=== PATIENT | female | born 1935 | race Caucasian/White ===

== ENCOUNTER 2020-09-27 17:19 | Emergency (ER) | payer MEDICARE ==
[~2020-09-27] VITALS: Ht 167.6 cm; Wt 65.8 kg
== END 2020-09-27 22:20 | disposition home or self-care (01) ==
LOC: ER 17:40
DX: S32.592A Other specified fracture of left pubis, initial encounter for closed fracture (principal); S00.83XA Contusion of other part of head, initial encounter; S30.0XXA Contusion of lower back and pelvis, initial encounter; W10.8XXA Fall (on) (from) other stairs and steps, initial encounter; Y93.01 Activity, walking, marching and hiking; Y99.0 Civilian activity done for income or pay; F32.9 Major depressive disorder, single episode, unspecified; Z85.038 Personal history of other malignant neoplasm of large intestine
CPT/HCPCS: 70450; 72125; 72192; 99283

== ENCOUNTER 2020-11-13 17:38 | Emergency (ER) | payer MEDICARE ==
[~2020-11-13] VITALS: Ht 167.6 cm; Wt 65.8 kg
[2020-11-13] MEDS ORDERED: ONDANSETRON HCL INJ 2MG/ML 2ML 2 MG/ML VIAL IV NR (17:56)
[2020-11-13 18:36] LABS: ALBUMIN 3.4 g/dL (3.5-5.0); ANION GAP 13.2 mmol/L (8-16); CALCIUM 8.5 mg/dL (8.4-10.2); CREATININE, SERUM 0.95 mg/dL (0.57-1.11); POTASSIUM 4.2 mmol/L (3.5-5.1)
[2020-11-13 18:37] LABS: BASOPHILS % 0.4 % (0.0-1.0); EOSINOPHILS # (AUTO) 0.1 (0.0-0.4); EOSINOPHILS % 1.5 % (0.0-6.0); HEMATOCRIT 39.4 % (34.2-44.1); HEMOGLOBIN 12.7 g/dL (12.0-16.0); LYMPHOCYTES # (AUTO) 1.1 (1.0-3.2); LYMPHOCYTES % 15.7 % (18.0-39.1); MEAN CORPUSCULAR HEMOGLOBIN 30.2 pg (28-32); MEAN CORPUSCULAR HGB CONC 32.2 g/dL (31-35); MEAN CORPUSCULAR VOLUME 93.8 fL (81-99); MONOCYTES # (AUTO) 0.6 (0.2-0.8); MONOCYTES % 7.9 % (4.4-11.3); NEUTROPHILS # (AUTO) 5.4 (2.1-6.9); NEUTROPHILS % 74.2 % (38.7-80.0); PLATELET COUNT 130 x10e3/uL (140-360); RED CELL DISTRIBUTION WIDTH 13.2 % (11.7-14.4)
[2020-11-13 18:38] LABS: AMYLASE 45 U/L (25-125); LIPASE 8 U/L (8-78)
[2020-11-13 18:42] LABS: CREATINE KINASE MB 1.3 ng/mL (0-5.0)
[2020-11-13] MEDS ORDERED: IOPAMIDOL 370 MG/ML 200 ML INFUS..BTL INJ ONE (19:06)
== END 2020-11-13 23:31 | disposition home or self-care (01) ==
LOC: ER 18:00
DX: R10.13 Epigastric pain (principal); R11.2 Nausea with vomiting, unspecified; K57.30 Diverticulosis of large intestine without perforation or abscess without bleeding; N28.1 Cyst of kidney, acquired; F32.9 Major depressive disorder, single episode, unspecified; Z85.038 Personal history of other malignant neoplasm of large intestine
CPT/HCPCS: 36415; 74177; 80053; 82150; 82550; 82553; 83690; 84484; 85025; 93005; 99284; Q9967

== ENCOUNTER 2021-10-07 12:39 | Emergency (ER) | payer MEDICARE, OTHER ==
[~2021-10-07] VITALS: Ht 170.2 cm; Wt 66.2 kg
== END 2021-10-07 15:07 | disposition home or self-care (01) ==
LOC: ER 12:56
DX: S92.355A Nondisplaced fracture of fifth metatarsal bone, left foot, initial encounter for closed fracture (principal); X50.1XXA Overexertion from prolonged static or awkward postures, initial encounter; Y93.01 Activity, walking, marching and hiking; Y92.89 Other specified places as the place of occurrence of the external cause; I10 Essential (primary) hypertension; F41.9 Anxiety disorder, unspecified; Z85.038 Personal history of other malignant neoplasm of large intestine
CPT/HCPCS: 99282

== ENCOUNTER 2021-12-11 13:08 | Outpatient (RCR) | payer MEDICARE | END 2021-12-13 | LOC: PT 13:08 | PROVIDERS: ATTEND Specialist | DX: S93.492D Sprain of other ligament of left ankle, subsequent encounter (principal); S93.412D Sprain of calcaneofibular ligament of left ankle, subsequent encounter; S93.602D Unspecified sprain of left foot, subsequent encounter; S92.352D Displaced fracture of fifth metatarsal bone, left foot, subsequent encounter for fracture with routine healing ==

== ENCOUNTER 2021-12-30 08:57 | Outpatient (RCR) | payer MEDICARE | END 2022-01-13 | LOC: PT 08:57 | PROVIDERS: ATTEND Specialist | DX: S93.492D Sprain of other ligament of left ankle, subsequent encounter (principal); S93.412D Sprain of calcaneofibular ligament of left ankle, subsequent encounter; S93.602D Unspecified sprain of left foot, subsequent encounter; S92.352D Displaced fracture of fifth metatarsal bone, left foot, subsequent encounter for fracture with routine healing ==

== ENCOUNTER 2024-04-07 12:53 | Inpatient (IN) | payer MEDICARE ==
[2024-04-07] VITALS (10 sets, daily range): BP systolic 142–163; BP diastolic 66–108; PULSE 75–87; RESP 7–20; TEMP 98.4–99.5; O2SAT 95–100
[~2024-04-07] VITALS: Ht 170.2 cm; Wt 61.2 kg
[2024-04-07 14:53] LABS: BASOPHILS % 0.3 % (0.0-1.0); EOSINOPHILS % 0.6 % (0.0-6.0); HEMATOCRIT 46.5 % (34.2-44.1); HEMOGLOBIN 15.5 g/dL (12.0-16.0); LYMPHOCYTES # (AUTO) 1.5 (1.0-3.2); LYMPHOCYTES % 22.8 % (18.0-39.1); MEAN CORPUSCULAR HEMOGLOBIN 30.8 pg (28-32); MEAN CORPUSCULAR HGB CONC 33.3 g/dL (31-35); MEAN CORPUSCULAR VOLUME 92.4 fL (81-99); MONOCYTES # (AUTO) 0.4 (0.2-0.8); MONOCYTES % 6.6 % (4.4-11.3); NEUTROPHILS # (AUTO) 4.6 (2.1-6.9); NEUTROPHILS % 69.3 % (38.7-80.0); PLATELET COUNT 104 x10e3/uL (140-360); RED BLOOD COUNT 5.03 x10e6/uL (3.6-5.1); RED CELL DISTRIBUTION WIDTH 12.2 % (11.7-14.4); WHITE BLOOD COUNT 6.68 x10e3/uL (4.8-10.8)
[2024-04-07 15:14] LABS: INR 0.89; PROTHROMBIN TIME 12.6 seconds (11.9-14.5)
[2024-04-07 15:15] LABS: PARTIAL THROMBOPLASTIN TIME 24.6 seconds (23.8-35.5)
[2024-04-07] MEDS ORDERED: DIATRIZOATE MEGL/DIATRIZOA SOD 30 ML BTL PO ONE (15:15)
[2024-04-07 15:21] LABS: ALBUMIN 3.4 g/dL (3.5-5.0); ANION GAP 15.8 mmol/L (8-16); BILIRUBIN,TOTAL 1.4 mg/dL (0.2-1.2); CALCIUM 9.5 mg/dL (8.4-10.2); CREATININE, SERUM 0.95 mg/dL (0.57-1.11); POTASSIUM 3.8 mmol/L (3.5-5.1); TOTAL PROTEIN 6.7 g/dL (6.5-8.1)
[2024-04-07] MEDS ORDERED: IOPAMIDOL 370 MG/ML 100 ML INFUS..BTL INJ ONE (16:29)
[2024-04-07] MEDS: DICYCLOMINE HCL 20 MG/2 ML VIAL IM ONE (16:32)
[2024-04-07] MEDS: SODIUM CHLORIDE 0.9% 1000ML 1,000 ML IV STA (16:32)
[2024-04-07] MEDS: ONDANSETRON HCL INJ 2MG/ML 2ML 2 MG/ML VIAL IV STA (16:32)
[2024-04-07] MEDS ORDERED: AMLODIPINE BESYL5 MG PO (16:43)
[2024-04-07] MEDS ORDERED: BUPROPION XL300 MG PO (16:43)
[2024-04-07] MEDS ORDERED: SERTRALINE HCL50 MG PO (16:43)
[2024-04-07] MEDS: DILTIAZEM HCL 5 MG/ML 5 ML VIAL IV STA (17:01)
[2024-04-07 17:25] LABS: THYROID STIMULATING HORMONE 1.435 uIU/mL (0.350-4.940); TROPONIN I 0.066 ng/mL (0-0.300)
[2024-04-07] MEDS: ENOXAPARIN SOD INJ 60 MG/0.6 ML SYR SC SCH (17:27)
[2024-04-07] MEDS ORDERED: Morphine 2mg Syringe 2 MG/ML SYR IV PRN ×2 (17:30→22:00)
[2024-04-07] MEDS ORDERED: ONDANSETRON HCL INJ 2MG/ML 2ML 2 MG/ML VIAL IV PRN (17:30)
[2024-04-07] MEDS: AMIODARONE HCL 150 MG/100 ML BAG IV ONE (17:31)
[2024-04-07] MEDS: AMIODARONE 900MG 500 ML IV SCH (18:25)
[2024-04-07] MEDS: SODIUM CHLORIDE 0.9% 500ML 500 ML IV ONE (18:36)
[2024-04-07] MEDS: SODIUM CHLORIDE 0.9% 1000ML 1,000 ML IV SCH (20:33)
[2024-04-07] MEDS ORDERED: TRAMADOL HCL 50 MG TAB PO PRN (22:00)
[2024-04-07] MEDS ORDERED: BISMUTH SUBSALICYLATE 262 MG TAB PO PRN (22:00)
[2024-04-07] MEDS ORDERED: ACETAMINOPHEN 325 MG TAB PO PRN (22:00)
[2024-04-07] MEDS ORDERED: GUAIFENESIN/DEXTROMETHORPHAN LIQD 5 ML UDC PO PRN (22:00)
[2024-04-07] MEDS ORDERED: MELATONIN 3 MG TAB PO PRN (22:00)
[2024-04-08] VITALS (34 sets, daily range): BP systolic 112–169; BP diastolic 55–150; PULSE 60–93; RESP 6–33; TEMP 97.7–99.5; O2SAT 95–99
[2024-04-08 00:28] LABS: TROPONIN I 0.097 ng/mL (0-0.300)
[2024-04-08 06:45] LABS: BASOPHILS % 0.4 % (0.0-1.0); EOSINOPHILS # (AUTO) 0.1 (0.0-0.4); EOSINOPHILS % 1.3 % (0.0-6.0); HEMOGLOBIN 13.4 g/dL (12.0-16.0); LYMPHOCYTES # (AUTO) 1.1 (1.0-3.2); LYMPHOCYTES % 22.1 % (18.0-39.1); MEAN CORPUSCULAR HEMOGLOBIN 30.7 pg (28-32); MEAN CORPUSCULAR HGB CONC 32.7 g/dL (31-35); MONOCYTES # (AUTO) 0.5 (0.2-0.8); MONOCYTES % 9.4 % (4.4-11.3); NEUTROPHILS # (AUTO) 3.2 (2.1-6.9); NEUTROPHILS % 66.4 % (38.7-80.0); PLATELET COUNT 75 x10e3/uL (140-360); RED BLOOD COUNT 4.36 x10e6/uL (3.6-5.1); RED CELL DISTRIBUTION WIDTH 12.1 % (11.7-14.4); WHITE BLOOD COUNT 4.79 x10e3/uL (4.8-10.8)
[2024-04-08 07:19] LABS: ALBUMIN 2.8 g/dL (3.5-5.0); ANION GAP 14.4 mmol/L (8-16); BILIRUBIN,TOTAL 1.4 mg/dL (0.2-1.2); CALCIUM 8.2 mg/dL (8.4-10.2); CHOL/HDL RATIO 4.8 (3.0-3.6); CREATININE, SERUM 0.78 mg/dL (0.57-1.11); TOTAL PROTEIN 5.7 g/dL (6.5-8.1)
[2024-04-08 07:20] LABS: POTASSIUM 3.4 mmol/L (3.5-5.1)
[2024-04-08 07:33] LABS: TROPONIN I 0.083 ng/mL (0-0.300)
[2024-04-08] MEDS: MULTIVITAMINS/MINERALS TAB PO SCH (12:37)
[2024-04-08] MEDS: METOPROLOL TARTRATE 50 MG TAB PO SCH (12:40)
[2024-04-08] MEDS: BUPROPION HCL 150 MG TABCR PO SCH (12:41)
[2024-04-08] MEDS: SERTRALINE HCL 50 MG TAB PO SCH (12:43)
[2024-04-08] MEDS: APIXABAN 2.5 MG TABLET PO SCH (18:05)
[2024-04-08] MEDS: AMIODARONE HCL 200 MG TAB PO SCH (18:06)
[2024-04-08] MEDS: POTASSIUM CHLORIDE 20 MEQ TAB CR PO ONE (19:09)
[2024-04-08] MEDS ORDERED: IOPAMIDOL 370 MG/ML 100 ML INFUS..BTL INJ ONE (19:40)
[2024-04-09] VITALS (18 sets, daily range): BP systolic 113–135; BP diastolic 52–99; PULSE 15–66; RESP 11–19; TEMP 98.1–98.8; O2SAT 95–100
[2024-04-09 06:41] LABS: BASOPHILS % 0.3 % (0.0-1.0); EOSINOPHILS # (AUTO) 0.1 (0.0-0.4); EOSINOPHILS % 1.7 % (0.0-6.0); HEMATOCRIT 40.5 % (34.2-44.1); HEMOGLOBIN 12.8 g/dL (12.0-16.0); LYMPHOCYTES # (AUTO) 1.1 (1.0-3.2); LYMPHOCYTES % 16.8 % (18.0-39.1); MEAN CORPUSCULAR HEMOGLOBIN 31.1 pg (28-32); MEAN CORPUSCULAR HGB CONC 31.6 g/dL (31-35); MEAN CORPUSCULAR VOLUME 98.3 fL (81-99); MONOCYTES # (AUTO) 0.6 (0.2-0.8); MONOCYTES % 9.3 % (4.4-11.3); NEUTROPHILS # (AUTO) 4.6 (2.1-6.9); NEUTROPHILS % 70.8 % (38.7-80.0); PLATELET COUNT 88 x10e3/uL (140-360); RED BLOOD COUNT 4.12 x10e6/uL (3.6-5.1); RED CELL DISTRIBUTION WIDTH 12.3 % (11.7-14.4); WHITE BLOOD COUNT 6.47 x10e3/uL (4.8-10.8)
[2024-04-09 07:06] LABS: ALBUMIN 2.7 g/dL (3.5-5.0); ANION GAP 12.1 mmol/L (8-16); CALCIUM 8.5 mg/dL (8.4-10.2); CREATININE, SERUM 0.75 mg/dL (0.57-1.11); MAGNESIUM 1.7 MG/DL (1.3-2.1); POTASSIUM 4.1 mmol/L (3.5-5.1); TOTAL PROTEIN 5.5 g/dL (6.5-8.1)
[2024-04-10 03:20] VITALS: BP 114/63; PULSE 63; RESP 18; TEMP 98.1; O2SAT 100
[2024-04-10 06:31] LABS: BASOPHILS % 0.3 % (0.0-1.0); EOSINOPHILS # (AUTO) 0.1 (0.0-0.4); EOSINOPHILS % 1.6 % (0.0-6.0); LYMPHOCYTES # (AUTO) 1.1 (1.0-3.2); LYMPHOCYTES % 17.2 % (18.0-39.1); MEAN CORPUSCULAR HEMOGLOBIN 30.6 pg (28-32); MEAN CORPUSCULAR HGB CONC 30.8 g/dL (31-35); MEAN CORPUSCULAR VOLUME 99.5 fL (81-99); MONOCYTES # (AUTO) 0.7 (0.2-0.8); MONOCYTES % 10.3 % (4.4-11.3); NEUTROPHILS # (AUTO) 4.5 (2.1-6.9); NEUTROPHILS % 69.4 % (38.7-80.0); PLATELET COUNT 96 x10e3/uL (140-360); RED BLOOD COUNT 3.92 x10e6/uL (3.6-5.1); RED CELL DISTRIBUTION WIDTH 12.5 % (11.7-14.4); WHITE BLOOD COUNT 6.41 x10e3/uL (4.8-10.8)
[2024-04-10 06:52] LABS: ALBUMIN 2.6 g/dL (3.5-5.0); ALBUMIN/GLOBULIN RATIO 0.9 (0.8-2.0); ANION GAP 12.8 mmol/L (8-16); BILIRUBIN,TOTAL 0.6 mg/dL (0.2-1.2); CALCIUM 8.6 mg/dL (8.4-10.2); CREATININE, SERUM 0.86 mg/dL (0.57-1.11); POTASSIUM 3.8 mmol/L (3.5-5.1); TOTAL PROTEIN 5.4 g/dL (6.5-8.1)
[2024-04-10 08:00] VITALS: BP 141/50; PULSE 68; RESP 18; TEMP 98.7; O2SAT 96
[2024-04-10 08:19] VITALS: BP 141/50; PULSE 68; RESP 15; TEMP 98.7; O2SAT 96
[2024-04-10] MEDS ORDERED: ZOLOFT50 MG PO (11:29)
[2024-04-10] MEDS ORDERED: AMIODARONE HCL200 MG PO (11:29)
[2024-04-10] MEDS ORDERED: ELIQUIS2.5 MG PO (11:29)
[2024-04-10] MEDS ORDERED: METOPROLOL TART50 MG PO (11:29)
[2024-04-10 12:42] VITALS: BP 133/79; PULSE 63; RESP 16; TEMP 98.2; O2SAT 100
== END 2024-04-10 12:55 | disposition home or self-care (01) | DRG 309 ==
LOC: ER 14:30 → ERHOLD 17:40 → ICU 20:22 → MED/SURG2 04-09 15:56
PROVIDERS: ADMIT Internal Medicine; ATTEND Internal Medicine
DX: I48.0 Paroxysmal atrial fibrillation (principal); J90 Pleural effusion, not elsewhere classified; E86.0 Dehydration; K52.9 Noninfective gastroenteritis and colitis, unspecified; I11.9 Hypertensive heart disease without heart failure; F41.8 Other specified anxiety disorders; R53.1 Weakness; R00.0 Tachycardia, unspecified; E87.8 Other disorders of electrolyte and fluid balance, not elsewhere classified; R91.8 Other nonspecific abnormal finding of lung field; I70.8 Atherosclerosis of other arteries; R62.7 Adult failure to thrive; Z68.21 Body mass index [BMI] 21.0-21.9, adult; I35.8 Other nonrheumatic aortic valve disorders; Z85.038 Personal history of other malignant neoplasm of large intestine; Z90.49 Acquired absence of other specified parts of digestive tract; Z71.81 Spiritual or religious counseling; Z86.19 Personal history of other infectious and parasitic diseases; Z79.899 Other long term (current) drug therapy
CPT/HCPCS: 36415; 71045; 71260; 74177; 80053; 80061; 82550; 83690; 83735; 84443; 84484; 85025; 85610; 85730; 93005; 93306; 94799; 99252; 99284; J1650; J2405; J2470; J7030; J7040; Q9963; Q9967

== ENCOUNTER 2024-04-30 17:58 | Emergency (ER) | payer MEDICARE ==
[~2024-04-30] VITALS: Ht 170.2 cm; Wt 61.2 kg
[~2024-04-30 17:58] MED LIST: AMIODARONE HCL200 MG PO; AMLODIPINE BESYL5 MG PO; BUPROPION XL300 MG PO; ELIQUIS2.5 MG PO; METOPROLOL TART50 MG PO; SERTRALINE HCL50 MG PO; ZOLOFT50 MG PO
[2024-04-30 18:00] VITALS: TEMP 98.5
[2024-04-30 18:39] LABS: BASOPHILS % 0.4 % (0.0-1.0); EOSINOPHILS % 0.7 % (0.0-6.0); HEMATOCRIT 40.8 % (34.2-44.1); HEMOGLOBIN 13.3 g/dL (12.0-16.0); LYMPHOCYTES # (AUTO) 1.1 (1.0-3.2); LYMPHOCYTES % 18.6 % (18.0-39.1); MEAN CORPUSCULAR HEMOGLOBIN 30.9 pg (28-32); MEAN CORPUSCULAR HGB CONC 32.6 g/dL (31-35); MEAN CORPUSCULAR VOLUME 94.7 fL (81-99); MONOCYTES # (AUTO) 0.4 (0.2-0.8); MONOCYTES % 7.4 % (4.4-11.3); NEUTROPHILS # (AUTO) 4.1 (2.1-6.9); NEUTROPHILS % 72.4 % (38.7-80.0); PLATELET COUNT 137 x10e3/uL (140-360); RED BLOOD COUNT 4.31 x10e6/uL (3.6-5.1); RED CELL DISTRIBUTION WIDTH 14.4 % (11.7-14.4); WHITE BLOOD COUNT 5.69 x10e3/uL (4.8-10.8)
[2024-04-30] MEDS: HYDRALAZINE HCL 20 MG/ML VIAL IV STA (18:53)
[2024-04-30 18:59] LABS: ALBUMIN 3.5 g/dL (3.5-5.0); ALBUMIN/GLOBULIN RATIO 0.9 (0.8-2.0); BILIRUBIN,TOTAL 0.8 mg/dL (0.2-1.2); CALCIUM 9.3 mg/dL (8.4-10.2); CREATININE, SERUM 1.05 mg/dL (0.57-1.11); TOTAL PROTEIN 7.2 g/dL (6.5-8.1)
[2024-04-30 21:00] VITALS: BP 151/77
[2024-04-30 21:04] VITALS: PULSE 60; RESP 14
[2024-04-30] MEDS ORDERED: LASIX40 MG PO (22:48)
[2024-04-30 23:01] VITALS: PULSE 58; RESP 20; O2SAT 97
== END 2024-05-01 | disposition home or self-care (01) ==
LOC: ER 18:09
DX: R42 Dizziness and giddiness (principal); J81.1 Chronic pulmonary edema; I16.0 Hypertensive urgency; I10 Essential (primary) hypertension; F41.9 Anxiety disorder, unspecified; F32.A Depression, unspecified; Z85.038 Personal history of other malignant neoplasm of large intestine
CPT/HCPCS: 36415; 70450; 71045; 80053; 84484; 85025; 93005; 99284; J0360

== ENCOUNTER → 2024-10-13 | Outpatient (RCR) | payer MEDICARE ==
[~2024-10-13] MED LIST changes: +LASIX40 MG PO
== END ==
LOC: ST 09-13 10:56 → PT 11:55
PROVIDERS: ATTEND Internal Medicine
DX: R47.1 Dysarthria and anarthria (principal); I67.4 Hypertensive encephalopathy

== ENCOUNTER 2024-11-09 10:59 | Outpatient (RCR) | payer MEDICARE | END 2024-11-13 | LOC: PT 10:59 | PROVIDERS: ATTEND Internal Medicine | DX: R47.1 Dysarthria and anarthria (principal); I67.4 Hypertensive encephalopathy ==